=== PATIENT | female | born 1945 | race Caucasian/White ===

== ENCOUNTER 2017-12-13 06:13 | Day surgery (SDC) | payer MEDICARE, BC ==
[2017-12-13] MEDS ORDERED: Lactated Ringers 1,000 ML IV SCH (07:00)
[2017-12-13] MEDS ORDERED: fentaNYL 100 MCG/2 ML SDV ONE (07:27)
[2017-12-13] MEDS ORDERED: Propofol 200 MG/20 ML SDV ONE (07:27)
--- NOTE | 2017-12-13 10:08 | OR ---
DATE OF PROCEDURE: 12/13/2017 SURGEON: Ariel Joiner MD PREOPERATIVE DIAGNOSIS: History of tubular adenoma. POSTOPERATIVE DIAGNOSES: 1. Unremarkable colonoscopy. 2. History of tubular adenoma. PROCEDURE: Colonoscopy to the cecum. ANESTHESIA: IV anesthesia with monitored anesthesia care. INDICATION: This 72-year-old white female is referred for a colonoscopy. Her last colonoscopic exam was done 3 years ago, where a tubular adenoma was found. I counseled her for the procedure including risks and alternatives, and she gave her informed consent to proceed. DESCRIPTION OF PROCEDURE: The patient was placed in the left lateral decubitus position. IV anesthesia was administered by the Anesthesia Service. Time-out was held. A rectal exam was performed, which was unremarkable. The flexible video Olympus colonoscope was introduced through her anus, up her rectum and out her colon, all the way to the cecum. Once the cecum was reached, the scope was slowly withdrawn examining the mucosa throughout. No mucosal abnormalities were noted. The scope was retroflexed in the rectum with the distal rectum appearing unremarkable. The scope was straightened and removed. She tolerated the procedure well. Ariel Joiner MD /[id number]
[2017-12-13 10:19] VITALS: BP 119/71
== END 2017-12-13 11:20 | disposition home or self-care (01) ==
LOC: JP.SDS 06:13
PROVIDERS: ATTEND Surgery
DX: Z12.11 Encounter for screening for malignant neoplasm of colon (principal); Z86.010 Personal history of colon polyps; Z88.8 Allergy status to other drugs, medicaments and biological substances
CPT/HCPCS: G0105; J2704; J3010; J7120

== ENCOUNTER 2022-10-23 11:40 | Emergency (ER) | payer MEDICARE, BC ==
[2022-10-23 14:08] VITALS: BP 120/62; PULSE 50
== END 2022-10-23 14:15 | disposition home or self-care (01) ==
LOC: JP.ED 11:40
DX: S70.01XA Contusion of right hip, initial encounter (principal); Z86.16 Personal history of COVID-19; Z79.899 Other long term (current) drug therapy; Z88.8 Allergy status to other drugs, medicaments and biological substances; W18.30XA Fall on same level, unspecified, initial encounter
CPT/HCPCS: 73700-26-RT; 73700-RT; 99283